=== PATIENT | male | born 1975 | race Caucasian/White ===

== ENCOUNTER 2017-12-15 17:16 | Emergency (ER) | payer OTHER ==
[~2017-12-15] VITALS: Ht 188 cm; Wt 113.0 kg
[2017-12-15] MEDS ORDERED: IBUPROFEN 400MG TABLET PO ONE (17:45)
[2017-12-15] MEDS ORDERED: PHENOL/SODIUM PHENOLATE 1.4% SRPAY 177ML MM ONE (17:45)
[2017-12-15] MEDS ORDERED: ACETAMINOPHEN 500MG TABLET PO ONE (17:45)
[2017-12-15 22:21] VITALS: BP 128/76
== END 2017-12-15 22:23 | disposition home or self-care (01) ==
LOC: ER 17:16
DX: J06.9 Acute upper respiratory infection, unspecified (principal); E11.9 Type 2 diabetes mellitus without complications; Z88.0 Allergy status to penicillin; Z88.2 Allergy status to sulfonamides
CPT/HCPCS: 87070; 87430; 99284